=== PATIENT | female | born 1950 | race Caucasian/White ===

== ENCOUNTER 2019-03-21 16:50 | Outpatient (CLI) | payer MEDICARE, MEDICAID ==
[2019-03-21 17:12] LABS: BASOPHILS # (AUTO) 0.1 10^3/uL (0.0-0.1); BASOPHILS % (AUTO) 0.9 %; EOSINOPHILS # (AUTO) 0.1 10^3/uL (0.0-0.7); EOSINOPHILS % (AUTO) 0.8 %; HGB - HEMOGLOBIN 15.6 g/dL (12.0-16.0); LYMPHOCYTES # (AUTO) 1.8 10^3/uL (1.5-3.5); LYMPHOCYTES % (AUTO) 27.6 %; MEAN CORPUSCULAR HEMOGLOBIN 32.2 pg (27.0-31.0); MEAN CORPUSCULAR HGB CONC 34.7 g/dL (32.0-36.0); MEAN PLATELET VOLUME 9.1 fL (7.9-10.8); MONOCYTES # (AUTO) 0.5 10^3/uL (0.0-1.0); MONOCYTES % (AUTO) 8.2 %; NEUTROPHILS # (AUTO) 3.9 10^3/uL (1.5-6.6); NEUTROPHILS % (AUTO) 62.2 %; PLT - PLATELET COUNT 307 10^3/uL (130-450); RED BLOOD COUNT 4.84 10^6/uL (4.20-5.40); RED CELL DISTRIBUTION WIDTH 12.4 % (12.0-15.0); WHITE BLOOD COUNT 6.3 x10^3/uL (4.8-10.8)
[2019-03-21 17:26] LABS: ALBUMIN 4.4 g/dL (3.2-5.5); ALBUMIN/GLOBULIN RATIO 1.5 (1.0-2.2); BILIRUBIN,TOTAL 0.7 mg/dL (0.2-1.0); CALCIUM 9.1 mg/dL (8.5-10.3); CREATININE 0.8 mg/dL (0.4-1.0); TOTAL PROTEIN 7.3 g/dL (6.7-8.2)
== END 2019-03-21 16:51 | disposition home or self-care (01) ==
LOC: LAB 16:50
PROVIDERS: ATTEND Surgery
DX: C50.912 Malignant neoplasm of unspecified site of left female breast (principal)
CPT/HCPCS: 36415; 80053; 82378; 85025; 86300

== ENCOUNTER 2019-03-30 09:31 | Outpatient (CLI) | payer MEDICARE, MEDICAID ==
[2019-03-30] MEDS ORDERED: IOVERSOL 320 100 ML VIAL IVP ONE ×2 (09:40→10:22)
--- NOTE | 2019-04-01 10:01 | Nuclear Medicine Report ---
Reason: LT BREAST CA Procedure Date: 03/30/2019 Accession Number: [id number] / [id number] Procedure: NM - Bone Whole Body CPT Code: Final Report FULL RESULT: EXAM: BONE SCAN EXAM DATE: 03/30/2019 01:22 PM. CLINICAL HISTORY: Left breast cancer. COMPARISON: CHEST W/ 03/30/2019 10:13 AM. TECHNIQUE: Following the intravenous administration of 31.5 mCi of technetium 99m MDP and an appropriate delay, a whole-body scan was performed in anterior and posterior projections. Site-specific spot views of the region of interest were obtained in various projections. FINDINGS: Exam Quality: Normal overall osseous radiotracer uptake. Physiological tracer uptake in bilateral collecting systems. Skull: No focal uptake. Thorax: No focal lesions in ribs or sternum. Pelvis: No focal lesions. There is mild diffusely increased tracer uptake in the right hip joint, likely degenerative. Spine: No suspicious focal uptake in the cervical or thoracic or lumbar spine. Mild degenerative endplate uptake in the lower thoracic spine. IMPRESSION: 1. No findings highly concerning for skeletal metastatic disease. 2. Mild diffusely increased tracer uptake in the right hip, likely degenerative. RADIA
--- NOTE | 2019-04-02 17:23 | CT Report ---
Reason: LT BREAST CA Procedure Date: 03/30/2019 Accession Number: [id number] / [id number] Procedure: CT - CHEST W CPT Code: Final Report FULL RESULT: EXAM: CT CHEST EXAM DATE: 03/30/2019 10:19 AM. CLINICAL HISTORY: History of left breast cancer with recurrence 02/01. COMPARISONS: None. TECHNIQUE: Routine helical CT imaging was performed through the chest. IV contrast: 80 mL Optiray 320. Reconstructions: Coronal and sagittal. In accordance with CT protocol optimization, one or more of the following dose reduction techniques were utilized for this exam: automated exposure control, adjustment of mA and/or KV based on patient size, or use of iterative reconstructive technique. FINDINGS: Lungs/Pleura: No consolidation, pleural effusion or pneumothorax. Mild biapical pleural parenchymal scarring. Mild linear scarring inferior lingula. No suspicious nodule or mass. Patent airways. Mediastinum: The heart is normal in size. No pericardial effusion. No mediastinal or hilar lymphadenopathy. No central pulmonary emboli. Normal caliber aorta. Moderately sized hiatal hernia. Bones: No suspicious osseous lesion. Probable hemangioma in the L2 vertebral body. Visualized Abdomen: Unremarkable. Other: Left mastectomy. No chest wall mass. No axillary lymphadenopathy. IMPRESSION: 1. No evidence of metastatic disease in the chest. 2. Moderate hiatal hernia. RADIA
== END 2019-03-30 09:32 | disposition home or self-care (01) ==
LOC: DI 09:31
PROVIDERS: ATTEND Surgery
DX: C50.912 Malignant neoplasm of unspecified site of left female breast (principal); K44.9 Diaphragmatic hernia without obstruction or gangrene
CPT/HCPCS: 71260; 78306; Q9967

== ENCOUNTER 2019-04-10 07:03 | Outpatient (CLI) | payer MEDICARE, MEDICAID ==
[2019-04-10] MEDS ORDERED: GADOBUTROL 10 MMOL/10 ML VIAL ONE (07:34)
[2019-04-10] MEDS ORDERED: GADOBUTROL 10 MMOL/10 ML VIAL IVP ONE (08:11)
--- NOTE | 2019-04-12 17:37 | MRI Report ---
Reason: LT BREAST CA Procedure Date: 04/10/2019 Accession Number: [id number] / [id number] Procedure: MRI - Breast W/WO Cont CPT Code: 96380 Final Report FULL RESULT: EXAM: BILATERAL BREAST MRI WITHOUT AND WITH CONTRAST EXAM DATE: 04/10/2019 08:44 AM CLINICAL HISTORY: 68-year-old woman with personal history of left breast malignancy postmastectomy presenting for MRI evaluation post recent ultrasound-guided core biopsy for palpable mass about the left chest revealing malignant adenocarcinoma, likely recurrence. MRI is requested to evaluate for extent of disease. TECHNIQUE: Body Coil: (Limited chest MRI)- Coronal LFOV STIR Dedicated breast coil: Axial - precontrast STIR Axial - postcontrast sequential 1 minute three-dimensional FLASH (x 5) Axial - high-resolution volumetric water stimulation acquisition (VIEWS) CONTRAST USED: 8 cc of Gadavist. POSTPROCESSING: Subtraction dynamic/curve analysis and multiplanar reformations with CAD stream FINDINGS: There is mild background parenchymal enhancement seen in the right breast, where there is scattered fibroglandular tissue. Right breast: No focal suspicious enhancing of the mentally seen. Evaluation of the axilla reveals normal-appearing lymph nodes. Left breast: Postmastectomy changes are noted. About the chest wall, there are 2 heterogeneously enhancing masses containing metallic clips compatible with sites of biopsy-proven malignancy. More inferior mass is noted to span 1.9 cm, best noted on axial image 73/172, sagittal 49/161. More cranial mass is best seen on axial image 108/132, sagittal 54/161 and measures approximately 3.8 x 4.1 cm. Both demonstrate chest wall invasion. There is an additional mildly enhancing chest wall mass spanning 3.4 cm, best demonstrated on axial image 87/132 and sagittal 68/161. Evaluation of the axilla and internal mammary chain does not reveal adenopathy. IMPRESSION: 1. Right breast: No focal suspicious enhancing abnormality seen. Grossly unremarkable axilla. (BI-RADS Category 1). 2. Left breast: Postmastectomy changes noted, with three heterogeneously enhancing chest wall masses suggestive of recurrence described above, largest mass measuring up to 4.1 cm (more cranial biopsy-proven malignancy). No evidence of axillary or internal mammary chain adenopathy. (BI-RADS Category 6). COMMENT: The literature indicates that a negative dynamic breast MRI has a high sensitivity and specificity for the detection of invasive carcinoma (to a threshold of 5 mm). MRI is not reliably sensitive for detecting ductal carcinoma in situ or large invasive neoplasms with only minimal enhancement (i.e. mucinous carcinoma). Normal-appearing lymph nodes on MRI may contain microscopic tumor. Appropriate clinical mammographic and sonographic followup should be performed if recommended. Negative MRI should not dissuade further evaluation of any suspicious mammographic calcifications and/or worrisome palpable masses.
== END 2019-04-10 07:04 | disposition home or self-care (01) ==
LOC: DI 07:03
PROVIDERS: ATTEND Surgery
DX: C50.912 Malignant neoplasm of unspecified site of left female breast (principal)
CPT/HCPCS: 77049; A9585

== ENCOUNTER 2019-09-04 13:46 | Outpatient (CLI) | payer MEDICARE, MEDICAID ==
[2019-09-04] MEDS ORDERED: GADOBUTROL 15 MMOL/15 ML VIAL IVP ONE (18:26)
--- NOTE | 2019-09-11 14:56 | MRI Report ---
BREAST MRI OF BOTH BREASTS: 09/05/2019 CLINICAL: Left Breast Known Malignancy. Evalutate for Chemo vs Medication. TECHNIQUE: The patient was placed prone in a dedicated breast imaging coil. Precontrast axial STIR and 3D FLASH without fat saturation sequences were obtained. Both before and after bolus injection of contrast, sequential 1-minute axial 3D FLASH with fat saturation sequences for 3 time points, with subtraction images and maximum intensity projections (MIP's) generated. Delayed sagittal FLASH images with fat s aturation were also obtained. Computer-aided detection, including computer algorithm analysis of MRI image data for lesion detectio n and characterization, pharmacokinetic analysis, with further physician review for interpretation, w as performed. COMPARISON: MRI dated April 10, [address] chest dated March 30, 2019. FINDINGS: Image quality: Study is slightly degraded by patient motion artifact and resulting mild misregistrat ion artifact. There is mild background parenchymal enhancement. There is scattered fibroglandular tissue in the right breast. Right breast: No suspicious mass, non-mass enhancement, architectural distortion. No skin or nipple abnormalities. No axillary or internal mammary chain adenopathy. Left breast: Stable postsurgical changes from left mastectomy. The 3 previously described enhancing anterior left chest wall masses have decreased in size and conspicuity. The most inferior mass is n ot well visualized. The more central mass previously described at the mid chest level is smaller and now measures approximately 1.7 cm x 1.2 cm (axial image 110, series 604) in cross section dimension and measures approximately 1.3 cm in craniocaudal dimension on sagittal image 93 (series 801). The s uperior left chest wall lesion now measures approximately 1.3 cm in transverse dimension, previously 2.5 cm at a similar level. No axillary or internal mammary chain adenopathy. Of note, the chest wal l masses represent previously biopsy-proven malignancy. Miscellaneous: Prominent hiatal hernia as before. Possible gallstones identified in the gallbladder without evidence for acute inflammation. Remainder of the visualized portions of the chest and uppe r abdomen appear unremarkable. Normal bone marrow signal intensity. IMPRESSION: KNOWN BIOPSY PROVEN MALIGNANCY 1. Status post left mastectomy. Interval decrease in size of left anterior chest wall masses compati ble with positive treatment response. No new enhancing mass lesions identified or adenopathy. 2. Right breast without MRI evidence for malignancy. 3. Likely cholelithiasis without evidence for acute cholecystitis. COMMENT: The imaging literature indicates that a negative contrast breast MRI examination has a high sensitivity and a moderate specificity for detecting and excluding invasive carcinomas to a detection threshold of 3-5 mm; nonetheless, appropriate clinical and mammographic follow-up are recommended. MRI is not sensitive for detecting DCIS (ductal carcinoma in situ) and may not detect large invasive neoplasms that show only minimal enhancement such as mucinous carcinoma. If there are suspicious gavin cifications or clinically worrisome palpable masses, then biopsy should still be considered. Invasiv e neoplasms can be hidden by co-existent and benign enhancement caused by mastitis, hormone therapy e ffects, radiation therapy, , and recent biopsy or surgery. False positive examinations can occur in a number of circumstances, including breasts that have recently been subject to invasive pro cedures and those that contain atypical ductal hyperplasia, hormonally stimulated glandular tissue, f at necrosis, or radial scars. This exam was interpreted at Station ID: [id number]. Electronically Signed By: Jovan Candelario M.D. aty/:09/06/2019 18:11:00 ACR BI-RADS Category 6: Known biopsy proven malignancy 3346F BI-RADS CATEGORY: (6) - 6 Unspecified - other recall n/a LATERALITY: (B)
== END 2019-09-04 13:47 | disposition home or self-care (01) ==
LOC: DI 13:46
PROVIDERS: ATTEND Physician Assistant
DX: C50.912 Malignant neoplasm of unspecified site of left female breast (principal); Z90.12 Acquired absence of left breast and nipple
CPT/HCPCS: 77049; A9585

== ENCOUNTER 2020-03-31 12:10 | Outpatient (CLI) | payer MEDICARE, MEDICAID ==
[2020-03-31] MEDS ORDERED: GADOBUTROL 10 MMOL/10 ML VIAL ONE (12:39)
[2020-03-31] MEDS ORDERED: GADOBUTROL 10 MMOL/10 ML VIAL IVP ONE (15:26)
--- NOTE | 2020-04-03 06:25 | MRI Report ---
BREAST MRI OF BOTH BREASTS- - LEFT BREAST POST MASTECTOMY POST-RADIATION THERAPY WITHOUT RECONSTRUCTI ON WITH CAD: 03/31/2020 CLINICAL: Routine screening. Personal history of left breast cancer. No prior exams were available for comparison. Interpretation of this MRI was correlated with available mammograms and previous MRI scans. Informed consent was obtained from the patient. 9 cc of Gadavist contrast was injected. Axial T1, T2, sagit chitra T1, and pre and post contrast T1 images were obtained with a dedicated breast coil. Post process ing was performed including computer aided calculations of any tumor volumes and dimensions. Bilateral background breast enhancement is mild. Right breast: No discrete mass or suspicious enhancement demonstrated in the right breast to suggest malignancy. Left breast: Postsurgical changes redemonstrated status post left mastectomy. There is increased ed juan within the chest wall including the skin, subcutaneous soft tissues, and anterior chest wall musc ulature likely reflecting post radiation changes. There is persistent decrease in size of the enhanc ing soft tissue masses in the chest wall described on the prior studies. This includes a small subcu taneous mass with indistinct margins centered on series 506 image 81 measuring approximately 1.2 x 0. 5 cm in transverse dimension and on sagittal series 801, image 73 measuring approximately 0.9 cm in c raniocaudal dimension. More superiorly, a mildly enhancing mass lesion within the pectoralis major m uscle centered on image 110 measures approximately 0.9 x 0.7 cm in transverse dimension and approxima tely 1.0 cm in craniocaudal dimension on sagittal image 59. The previously described deeper mass more cranially in the left chest wall is not discretely well visualized on the current study. The findin gs are consistent with progressive response to therapy. No new suspicious enhancing left chest wall masses. Miscellaneous: There is scarring in the left axilla consistent with post treatment changes. No defi nite lymphadenopathy by size criteria. No evidence of internal mammary or right axillary adenopathy by size criteria. IMPRESSION: KNOWN BIOPSY PROVEN MALIGNANCY 1. Progressive decrease in size of left chest wall enhancing mass lesions as described consistent wit h continued response to therapy. 2. Increased left chest wall edema likely representing post radiation changes. 3. No evidence of malignancy in the right breast. This exam was interpreted at Station ID: [id number]. Electronically Signed By: Timothy Vaca M.D. ddp/:04/01/2020 13:41:52 ACR BI-RADS Category 6: Known biopsy proven malignancy 3346F BI-RADS CATEGORY: (6) - 6 Unspecified - other recall n/a LATERALITY: (B)
== END 2020-03-31 12:11 | disposition home or self-care (01) ==
LOC: DI 12:10
PROVIDERS: ATTEND Internal Medicine Hematology & Oncology
DX: Z08 Encounter for follow-up examination after completed treatment for malignant neoplasm (principal); Z85.3 Personal history of malignant neoplasm of breast; Z90.12 Acquired absence of left breast and nipple; R22.2 Localized swelling, mass and lump, trunk
CPT/HCPCS: 77049; A9585